=== PATIENT | female | born 1995 | race Caucasian/White ===

== ENCOUNTER 2021-02-24 13:47 | Outpatient (CLI) | payer BC ==
[2021-02-24 14:10] LABS: #Basophils 0.1 10x3/uL (0.0-0.2); #Eosinphils 0.1 10x3/uL (0.0-0.5); #Monocytes 0.8 10x3/uL (0.0-1.1); #Neutrophils 4.7 10x3/uL (1.5-8.4); %Basophils 0.7 % (0.0-2.0); %Eosinophils 1.2 % (0.0-6.0); %Lymphocytes 30.3 % (18.0-47.0); %Monocytes 10.1 % (0.0-10.0); %Neutrophils 57.5 % (40.0-75.0); Hemoglobin 12.4 g/dL (12.0-15.5); Mean Corpuscular Hemoglobin 29.8 pg (27.0-33.0); Mean Platelet Volume 10.2 fl (7.4-10.4); Platelet Count 339 10x3/uL (150-450); RBC Distribution Width 12.1 % (11.5-14.5); Red Blood Cell (RBC) Count 4.16 10x6/uL (3.90-5.03); White Blood Cell (WBC) Count 8.2 10x3/uL (3.5-10.5)
[2021-02-24 14:13] LABS: BHCG - Serum Negative (NEGATIVE); Pregs Control Background? CLEAR/WHITE (CLR/WHITE); Pregs Control Bar Appear? YES (CONTROL BAR)
[2021-02-24 14:18] LABS: Anion Gap 9 mmol/L (10-20); BUN (Urea Nitrogen) 11 mg/dL (7.0-18.7); Calc. Creatinine Clearance 0 mL/min (70-130); Carbon Dioxide 27 mmol/L (22-29); Chloride 105 mmol/L (98-107); Glucose 95 mg/dL (70-105); Potassium 4.2 mmol/L (3.5-5.1); Sodium 137 mmol/L (136-145)
[2021-02-25 02:03] LABS: SARS-CoV-2 PCR by NAA Not Detected (NotDetected)
== END 2021-02-24 13:48 | disposition home or self-care (01) ==
LOC: LABBT 13:47
PROVIDERS: ATTEND Surgery
DX: Z01.812 Encounter for preprocedural laboratory examination (principal); N63.0 Unspecified lump in unspecified breast; Z20.822 Contact with and (suspected) exposure to COVID-19
CPT/HCPCS: 80048; 84703; 85025; 87635; U0003; U0005

== ENCOUNTER 2021-02-27 07:25 | Day surgery (SDC) | payer BC ==
[2021-02-26 12:47] VITALS: BMI 22.7
[2021-02-27] MEDS ORDERED: Lidocaine 1% w/Epinephrine 1:100K 20 ML VIAL ONE (09:01)
[2021-02-27] MEDS ORDERED: Bupivacaine 0.25% HCL 30 ML VIAL ONE (09:01)
[2021-02-27] MEDS ORDERED: Fentanyl 100 MCG/2 ML VIAL ONE (09:08)
[2021-02-27] MEDS ORDERED: Famotidine/PF 20 mg/2ml Vial ONE (09:08)
[2021-02-27] MEDS ORDERED: Meperidine HCl/PF 25 MG/ML VIAL ONE (09:08)
[2021-02-27] MEDS ORDERED: PHENYLEPHRINE-NS 100 MCG/ML 10 ML SYRINGE ONE (09:23)
[2021-02-27] MEDS ORDERED: Ondansetron PF 4 MG/2 ML Vial ONE (09:23)
[2021-02-27] MEDS ORDERED: Dexamethasone 20 MG/5 ML VIAL ONE (09:23)
[2021-02-27] MEDS ORDERED: ePHEDrine Sulfate 50 MG/10 ML VIAL ONE (09:23)
[2021-02-27] MEDS ORDERED: PROPOFOL 200 MG/20 ML VIAL ONE (09:23)
[2021-02-27] MEDS ORDERED: Ketorolac Tromethamine 30 MG/ML VIAL ONE (09:23)
[2021-02-27] MEDS ORDERED: Lidocaine 1% PF 5 ML VIAL ONE (09:23)
[2021-02-27] MEDS ORDERED: Metoclopramide HCl 10 MG/2 ML VIAL ONE (09:23)
[2021-02-27] MEDS ORDERED: HYDROcodone/Acetaminophen 5/325 mg Tablet ONE (12:25)
== END 2021-02-27 13:05 | disposition home or self-care (01) ==
LOC: SDC 07:25
PROVIDERS: ATTEND Surgery
PROC: 0H9T0ZX Drainage of Right Breast, Open Approach, Diagnostic (ICD-10-PCS; principal; 2021-02-27)
DX: D24.1 Benign neoplasm of right breast (principal); Z79.899 Other long term (current) drug therapy; Z88.8 Allergy status to other drugs, medicaments and biological substances
CPT/HCPCS: 88305; J1100; J1885; J2175; J2405; J2704; J2765; J3010; S0020; S0028

== ENCOUNTER 2022-12-02 06:33 | Day surgery (SDC) | payer BC ==
[2022-12-01 09:29] VITALS: BMI 22.7
[~2022-12-02 06:33] MED LIST: Fluorouracil 100 MG, Enoxaparin 25 MG, EPINEPHrine 0.3 MG in Ophthalmic Irrigation Solu... IRR SCH
[2022-12-02] MEDS ORDERED: Famotidine/PF 20 mg/2ml Vial ONE (06:39)
[2022-12-02] MEDS ORDERED: Phenylephrine 2.5% Ophth Soln 5 ML BOT ONE (07:01)
[2022-12-02] MEDS ORDERED: Cyclopentolate 1% Opth Drop 2 ML BOT ONE (07:01)
[2022-12-02] MEDS ORDERED: Midazolam HCl 2 mg/2 ml Vial ONE (08:28)
[2022-12-02] MEDS ORDERED: Fentanyl 100 MCG/2 ML VIAL ONE (08:31)
[2022-12-02] MEDS ORDERED: Ondansetron PF 4 MG/2 ML Vial ONE ×2 (08:31→08:38)
[2022-12-02] MEDS ORDERED: Metoclopramide HCl 10 MG/2 ML VIAL ONE ×2 (08:31→08:38)
[2022-12-02] MEDS ORDERED: Lidocaine 1% PF 5 ML VIAL ONE (08:38)
[2022-12-02] MEDS ORDERED: Triamcinolone 40 MG/ML VIAL ONE (08:38)
[2022-12-02] MEDS ORDERED: PROPOFOL 200 MG/20 ML VIAL ONE (08:38)
[2022-12-02] MEDS ORDERED: Ketorolac Tromethamine 30 MG/ML VIAL ONE (08:38)
[2022-12-02] MEDS ORDERED: Maxitrol 0.1% Opth Oint 3.5 GM TUBE ONE (08:38)
[2022-12-02] MEDS ORDERED: Dexamethasone 20 MG/5 ML VIAL ONE (08:38)
[2022-12-02] MEDS ORDERED: Bupivacaine 0.75% 10 ML VIAL ONE (08:38)
[2022-12-02] MEDS ORDERED: Lidocaine 4% PF 5 ML AMP ONE (08:38)
[2022-12-02] MEDS ORDERED: CEFAZOLIN 1 GM VIAL ONE (08:38)
== END 2022-12-02 11:15 | disposition home or self-care (01) ==
LOC: SDC 06:33
PROVIDERS: ATTEND Ophthalmology Retina Specialist
PROC: 08T53ZZ Resection of Left Vitreous, Percutaneous Approach (ICD-10-PCS; principal; 2022-12-02)
PROC: 08NF3ZZ Release Left Retina, Percutaneous Approach (ICD-10-PCS; principal; 2022-12-02)
DX: H35.372 Puckering of macula, left eye (principal); Z79.899 Other long term (current) drug therapy; Z88.8 Allergy status to other drugs, medicaments and biological substances
CPT/HCPCS: J0171; J0690; J1100; J1650; J1885; J2250; J2405; J2704; J2765; J3010; J3301; J3490; J9190; S0028

== ENCOUNTER 2023-03-24 10:32 | Day surgery (SDC) | payer BC ==
[2023-03-22 15:14] VITALS: BMI 22.7
[2023-03-24] MEDS ORDERED: Cyclopentolate 1% Opth Drop 2 ML BOT ONE ×2 (11:23→11:35)
[2023-03-24] MEDS ORDERED: Phenylephrine 10% OPTH 5 ML BOT ONE ×2 (11:24→11:35)
[2023-03-24] MEDS ORDERED: Scopolamine 1.5 mg/72 hour Patch ONE (11:25)
[2023-03-24] MEDS ORDERED: Midazolam HCl 2 mg/2 ml Vial ONE (12:18)
[2023-03-24] MEDS ORDERED: fentaNYL 50 mcg/mL 1 mL Vial ONE ×2 (12:18)
[2023-03-24] MEDS ORDERED: Famotidine/PF 20 mg/2ml Vial ONE (12:18)
[2023-03-24] MEDS ORDERED: Metoclopramide HCl 10 MG/2 ML VIAL ONE (12:23)
[2023-03-24] MEDS ORDERED: Triamcinolone 40 MG/ML VIAL ONE (12:23)
[2023-03-24] MEDS ORDERED: Maxitrol 0.1% Opth Oint 3.5 GM TUBE ONE (12:23)
[2023-03-24] MEDS ORDERED: Dexamethasone 20 MG/5 ML VIAL ONE (12:23)
[2023-03-24] MEDS ORDERED: Lidocaine 1% PF 5 ML VIAL ONE ×2 (12:23)
[2023-03-24] MEDS ORDERED: PROPOFOL 200 MG/20 ML VIAL ONE (12:23)
[2023-03-24] MEDS ORDERED: ePHEDrine Sulfate 50 MG/10 ML VIAL ONE (12:23)
[2023-03-24] MEDS ORDERED: CEFAZOLIN 1 GM VIAL ONE (12:23)
[2023-03-24] MEDS ORDERED: Ondansetron PF 4 MG/2 ML Vial ONE (12:23)
== END 2023-03-24 15:25 | disposition home or self-care (01) ==
LOC: SDC 10:32
PROVIDERS: ATTEND Ophthalmology Retina Specialist
PROC: 08NF3ZZ Release Left Retina, Percutaneous Approach (ICD-10-PCS; principal; 2023-03-24)
PROC: 08T53ZZ Resection of Left Vitreous, Percutaneous Approach (ICD-10-PCS; principal; 2023-03-24)
DX: H35.372 Puckering of macula, left eye (principal); Z79.899 Other long term (current) drug therapy; Z88.8 Allergy status to other drugs, medicaments and biological substances
CPT/HCPCS: 67025; J0171; J0690; J1100; J1650; J2250; J2405; J2704; J2765; J3010; J3301; J9190; S0028

== ENCOUNTER 2023-07-14 08:34 | Day surgery (SDC) | payer BC ==
[2023-07-13 11:31] VITALS: BMI 22.7
[~2023-07-14 08:34] MED LIST changes: +Midazolam HCl 2 mg/2 ml Vial ONE; +PROPOFOL 20 ML ONE; +fentaNYL 50 mcg/mL 1 mL Vial ONE
[2023-07-14] MEDS ORDERED: PHENYLephrine 2.5% Ophth Soln 15 ml Bottle ONE (08:56)
[2023-07-14] MEDS ORDERED: Cyclopentolate 2% Opth Drop 15 ML BOT ONE (08:56)
[2023-07-14] MEDS ORDERED: Lidocaine 1% PF 5 ML VIAL ONE (10:32)
[2023-07-14] MEDS ORDERED: Maxitrol 0.1% Opth Oint 3.5 GM TUBE ONE (10:32)
[2023-07-14] MEDS ORDERED: Lidocaine 4% PF 5 ML AMP ONE (10:32)
[2023-07-14] MEDS ORDERED: Triamcinolone 40 MG/ML VIAL ONE (10:32)
[2023-07-14] MEDS ORDERED: Dexamethasone 20 MG/5 ML VIAL ONE (10:32)
[2023-07-14] MEDS ORDERED: Indocyanine Green 25 MG/10 ML VIAL ONE (10:32)
[2023-07-14] MEDS ORDERED: CEFAZOLIN 1 GM VIAL ONE (10:32)
[2023-07-14] MEDS ORDERED: Bupivacaine 0.75% 10 ML VIAL ONE (10:32)
[2023-07-14] MEDS ORDERED: PROPOFOL 200 MG/20 ML VIAL ONE (10:32)
[2023-07-14] MEDS ORDERED: Ondansetron PF 4 MG/2 ML Vial ONE (10:32)
[2023-07-14] MEDS ORDERED: Metoclopramide HCl 10 MG/2 ML VIAL ONE (10:32)
[2023-07-14] MEDS ORDERED: Famotidine/PF 20 mg/2ml Vial ONE (10:44)
[2023-07-14] MEDS ORDERED: Promethazine HCl 25 MG/ML VIAL ONE (10:44)
== END 2023-07-14 14:42 | disposition home or self-care (01) ==
LOC: SDC 08:34
PROVIDERS: ATTEND Ophthalmology Retina Specialist
PROC: 08T53ZZ Resection of Left Vitreous, Percutaneous Approach (ICD-10-PCS; principal; 2023-07-14)
PROC: 08U10JZ Supplement of Left Eye with Synthetic Substitute, Open Approach (ICD-10-PCS; principal; 2023-07-14)
DX: H33.42 Traction detachment of retina, left eye (principal)
CPT/HCPCS: J0171; J0690; J1100; J1650; J2250; J2405; J2550; J2704; J2765; J3010; J3301; J3490; J9190; S0028

== ENCOUNTER 2023-12-23 16:06 | Day surgery (SDC) | payer BC ==
[2023-12-23] MEDS ORDERED: Cyclopentolate 1% Opth Drop 2 ML BOT L EYE SCH (16:30)
[2023-12-23] MEDS ORDERED: Cyclopentolate 1% Opth Drop 2 ML BOT ONE (16:30)
[2023-12-23] MEDS ORDERED: Fluorouracil 100 MG, Enoxaparin 25 MG, EPINEPHrine 0.3 MG in Ophthalmic Irrigation Solu... IRR SCH (16:30)
[2023-12-23] MEDS ORDERED: PHENYLephrine 2.5% Ophth Soln 15 ml Bottle ONE (16:30)
[2023-12-23] MEDS ORDERED: fentaNYL 50 mcg/mL 1 mL Vial ONE (17:07)
[2023-12-23] MEDS ORDERED: PROPOFOL 20 ML ONE ×2 (17:07→17:47)
[2023-12-23] MEDS ORDERED: Dexmedetomidine 200 MCG/2 ML VIAL ONE (17:07)
[2023-12-23] MEDS ORDERED: Ondansetron PF 4 MG/2 ML Vial ONE (17:16)
[2023-12-23] MEDS ORDERED: Ketorolac Tromethamine 30 MG (1 mL) VIAL ONE (17:16)
[2023-12-23] MEDS ORDERED: Dexamethasone 4 mg/ml Vial ONE (17:16)
[2023-12-23] MEDS ORDERED: Lidocaine 4% PF 5 ML AMP ONE (17:35)
[2023-12-23] MEDS ORDERED: Bupivacaine 0.75% 10 ML VIAL ONE (17:35)
[2023-12-23] MEDS ORDERED: Maxitrol 0.1% Opth Oint 3.5 GM TUBE ONE (17:35)
[2023-12-23] MEDS ORDERED: Triamcinolone 40 MG/ML VIAL ONE (17:35)
[2023-12-23] MEDS ORDERED: Lidocaine 1% PF 5 ML VIAL ONE (17:35)
[2023-12-23] MEDS ORDERED: CEFAZOLIN 1 GM VIAL ONE (17:35)
[2023-12-23] MEDS ORDERED: SUCCINYLCHOLINE/SOD CL,ISO/PF 200 MG/10 ML SYRINGE FS ONE (17:35)
[2023-12-23] MEDS ORDERED: Enoxaparin 30 MG (0.3 mL) SYRINGE ONE (17:35)
[2023-12-23] MEDS ORDERED: Rocuronium Bromide 10 MG/ML (10ML VIAL) ONE (17:35)
[2023-12-23] MEDS ORDERED: Lidocaine 2% PF 5 ML VIAL ONE (17:55)
== END 2023-12-23 20:00 | disposition home or self-care (01) ==
LOC: SDC 16:06
PROVIDERS: ATTEND Ophthalmology Retina Specialist
PROC: 08T53ZZ Resection of Left Vitreous, Percutaneous Approach (ICD-10-PCS; principal; 2023-12-23)
DX: H33.022 Retinal detachment with multiple breaks, left eye (principal); Z88.8 Allergy status to other drugs, medicaments and biological substances
CPT/HCPCS: 67025; J0171; J1100; J1650; J1885; J2001; J2405; J2704; J3010; J9190